=== PATIENT | male | born 2000 | race African-American/Black ===

== ENCOUNTER 2020-02-17 09:47 | Emergency (ER) | payer SELFPAY | END 2020-02-17 10:16 | disposition home or self-care (01) | LOC: ERS 09:47 | DX: R21 Rash and other nonspecific skin eruption (principal) | CPT/HCPCS: 99282 ==

== ENCOUNTER 2020-08-15 09:43 | Emergency (ER) | payer BC, SELFPAY ==
[2020-08-15 11:26] LABS: Band 2 % (5-11); Lymphocytes 11 % (21-51); MDiff Complete? YES; Mean Corpuscular HGB CONC 32.9 g/dL (32.0-36.0); Mean Corpuscular Hemoglobin 27.7 pg (27.0-31.0); Mean Corpuscular Volume 84.1 fL (78.0-98.0); Mean Platelet Volume 6.9 fL (7.4-10.4); Monocytes 12 % (0-10); Neutrophil 75 % (42-75); Platelet Count 347 thou/uL (130-400); Platelet Morphology Comment Appears Adequate; RBC Distribution Width 12.1 % (11.5-14.5); Red Blood Cell (RBC) Count 4.35 mill/uL (4.70-6.10); White Blood Cell (WBC) Count 11.9 thou/uL (4.8-10.8)
[2020-08-15 11:27] LABS: ALT (SGPT) Less than 7 U/L (8-55); AST (SGOT) 14 U/L (5-34); Albumin 3.6 g/dL (3.5-5.0); Alkaline Phosphatase 58 U/L (40-110); Anion Gap 13 mmol/L (10-20); BUN (Urea Nitrogen) 11 mg/dL (8.9-20.6); Bilirubin, Total 0.5 mg/dL (0.2-1.2); Calc. Creatinine Clearance 0 mL/min (70-130); Calcium 8.8 mg/dL (7.8-10.44); Carbon Dioxide 28 mmol/L (22-29); Chloride 96 mmol/L (98-107); Globulin 3.9 g/dL (2.4-3.5); Glucose 96 mg/dL (70-105); Potassium 3.5 mmol/L (3.5-5.1); Protein, Total 7.5 g/dL (6.0-8.3); Sodium 133 mmol/L (136-145)
--- NOTE | 2020-08-15 11:47 | CT ---
CHEST CT WITH CONTRAST: HISTORY: Chest pain with inspiration. Asthma. COMPARISON: None. FINDINGS: Mediastinum: No mass, lymphadenopathy or hematoma. Lower neck and axilla: No lymphadenopathy. Heart: Normal heart size. No pericardial effusion. Aorta: Normal caliber. Subdiaphragmatic structures: No acute abnormality. Trachea and central bronchi: Patent. Pleural effusions: None. Pneumothorax: None. Right lung: There is a right upper lobe alveolar consolidation. There is evidence of central cavitati on with an air-fluid level. Cavity measures 2.7 x 1.9 cm. Smaller adjacent areas of airspace disease are noted. There are nonspecific nodules in the right upper lobe measuring 0.4 and 0.4 cm. Luis th nodules have a somewhat groundglass appearance. Adequate aeration of the middle middle lobe and right lower lobe. Left lung: Adequate aeration. No masses or consolidation. Osseous structures: No lytic or blastic lesions. There is mild leftward curvature of the upper thorac ic spine. IMPRESSION: Consolidation of the right upper lobe with air bronchograms. There is evidence of right upper lobe pn eumonia with cavitation. Smaller groundglass nodules may represent adjacent areas of developing pneumonia. After appropriate medical management, follow-up CT is recommended to ensure resolution. Transcribed Date/Time: 08/15/2020 1:17 PM
--- NOTE | 2020-08-15 12:29 | RAD ---
TWO VIEW CHEST: INDICATION: Fever, shortness of breath. FINDINGS: There is dense infiltrate/consolidation involving the posterior segment of the right upper lobe. I c annot exclude a cavitary focus within this dense consolidation. The left lung is clear. Heart and mediastinum unremarkable. Slight scoliotic curvature of the thora columbar spine to the right. IMPRESSION: Dense consolidation posterior segment right upper lobe with evidence of a central cavitation. POS: [facility]
[2020-08-15] MEDS ORDERED: Acetaminophen 500 MG TAB ONE (13:17)
[2020-08-15] MEDS ORDERED: Iopamidol-370 76% 500 ML 1 ML ONE (14:03)
== END 2020-08-15 13:06 | disposition home or self-care (01) ==
LOC: ERS 09:43
DX: J18.9 Pneumonia, unspecified organism (principal); J45.909 Unspecified asthma, uncomplicated; Z86.16 Personal history of COVID-19
CPT/HCPCS: 36415; 71046; 71260; 80053; 85025; 93005; Q9967

== ENCOUNTER 2023-05-19 17:17 | Emergency (ER) | payer SELFPAY | END 2023-05-19 19:10 | disposition home or self-care (01) | LOC: ERS 17:17 | DX: M79.671 Pain in right foot (principal) | CPT/HCPCS: 99283 ==

== ENCOUNTER 2023-08-20 17:32 | Emergency (ER) | payer SELFPAY ==
[2023-08-20] MEDS ORDERED: Ondansetron PF 4 MG/2 ML Vial ONE (19:32)
[2023-08-20] MEDS ORDERED: Ketorolac Tromethamine 30 MG (1 mL) VIAL ONE (19:32)
[2023-08-20 19:46] LABS: SARS-CoV-2 NAA Rapid Test Not Detected (NotDetected)
== END 2023-08-20 20:45 | disposition home or self-care (01) ==
LOC: ERS 17:32
DX: J10.1 Influenza due to other identified influenza virus with other respiratory manifestations (principal); J45.909 Unspecified asthma, uncomplicated
CPT/HCPCS: 36416; 96361; 96374; 96375; J1885; J2405

== ENCOUNTER 2023-12-18 10:15 | Emergency (ER) | payer BC, SELFPAY | END 2023-12-18 12:00 | disposition home or self-care (01) | LOC: ERS 10:15 | DX: H61.22 Impacted cerumen, left ear (principal); H66.92 Otitis media, unspecified, left ear; J45.909 Unspecified asthma, uncomplicated; Z75.3 Unavailability and inaccessibility of health-care facilities | CPT/HCPCS: 69210; 99282 ==